=== PATIENT | female | born 1980 | race Caucasian/White ===

== ENCOUNTER 2017-09-08 22:28 | Emergency (ER) | payer BC ==
[~2017-09-08] VITALS: Ht 165.1 cm; Wt 99.8 kg
[2017-09-08] MEDS ORDERED: ALBUTEROL SULFATE 2.5 MG/3 ML NEBU NEB ONE (23:00)
[2017-09-08] MEDS ORDERED: IPRATROPIUM BROMIDE 0.5 MG/2.5 ML NEBU NEB ONE (23:00)
[2017-09-08] MEDS ORDERED: predniSONE 20 MG TABLET PO ONE (23:00)
--- NOTE | 2017-09-08 23:06 | NUR ---
RT AT BEDSIDE FOR BREATHING TREATMENT.
[2017-09-08] MEDS ORDERED: ALBUTEROL SULFATE 2.5 MG/3 ML NEBU ONE (23:09)
[2017-09-08] MEDS ORDERED: IPRATROPIUM BROMIDE 0.5 MG/2.5 ML NEBU ONE (23:10)
[2017-09-08] MEDS ORDERED: predniSONE 20 MG TABLET ONE (23:13)
--- NOTE | 2017-09-08 23:28 | NUR ---
PT STATES SHE "FEELS MUCH BETTER" FOLLOWING BREATHING TREATMENT. LUNG SOUNDS CLEAR TO AUSCULTATION. NO SOB NOTED.
--- NOTE | 2017-09-08 23:57 | NUR ---
Patient discharged to home in stable conditon. Written and verbal after care instructions given. Patient verbalizes understanding of instructions. PT ambulated from ER w/ steady gait. Denied SOB. No distress noted. PT took all personal belonings.
[2017-09-08 23:59] VITALS: BP 122/83
== END 2017-09-09 | disposition home or self-care (01) ==
LOC: ER 22:29
DX: J45.901 Unspecified asthma with (acute) exacerbation (principal)
CPT/HCPCS: 94640; 99283; A4663; J3590; J7512

== ENCOUNTER 2018-01-09 11:52 | Emergency (ER) | payer BC ==
[~2018-01-09] VITALS: Ht 165.1 cm; Wt 99.8 kg
--- NOTE | 2018-01-09 12:05 | NUR ---
PT IS IN ROOM #1B. DR LAROSE EVALUATED THE PT.
[2018-01-09] MEDS ORDERED: ALBUTEROL SULFATE 2.5 MG/3 ML NEBU ONE (12:07)
[2018-01-09] MEDS ORDERED: IPRATROPIUM BROMIDE 0.5 MG/2.5 ML NEBU ONE (12:07)
[2018-01-09] MEDS ORDERED: ALBUTEROL SULFATE 2.5 MG/3 ML NEBU NEB ONE (12:15)
[2018-01-09] MEDS ORDERED: IPRATROPIUM BROMIDE 0.5 MG/2.5 ML NEBU NEB ONE (12:15)
[2018-01-09] MEDS ORDERED: predniSONE 50 MG TABLET PO ONE (13:00)
[2018-01-09] MEDS ORDERED: predniSONE 50 MG TABLET ONE (13:04)
--- NOTE | 2018-01-09 13:47 | NUR ---
PT WAS D/C TO HOME BY DR LAROSE. D/C INSTRUCTIONS GIVEN TO THE PT.
[2018-01-09 13:48] VITALS: BP 136/78
== END 2018-01-09 13:48 | disposition home or self-care (01) ==
LOC: ER 11:54
DX: J45.901 Unspecified asthma with (acute) exacerbation (principal)
CPT/HCPCS: 94644; 99285; J7512; A4663; J3590